=== PATIENT | female | born 1990 | race Caucasian/White ===

== ENCOUNTER 2018-12-07 04:32 | Emergency (ER) | payer MEDICAID, OTHER ==
[~2018-12-07] VITALS: Ht 170.2 cm; Wt 100.0 kg
[2018-12-07] MEDS ORDERED: MIRE1IUD IU (04:44)
[2018-12-07] MEDS ORDERED: METOCLOPRAMIDE INJ 10MG/2ML VIAL (J2765) IV ONE (04:45)
[2018-12-07] MEDS ORDERED: NS 1,000 ML IV ONE (04:45)
[2018-12-07 05:03] LABS: BASO # 0.1 10^3/uL (0.0-0.2); BASO % 0.4 % (0.0-1.0); EOS # 0.1 10^3/uL (0.0-0.50); EOS % 0.5 % (0.0-3.0); HEMATOCRIT 44.3 % (36.0-47.0); HEMOGLOBIN 14.8 g/dl (12.0-15.5); LYMPH # 2.3 10^3/uL (1.5-4.5); LYMPH % 17.2 % (24.0-44.0); MEAN CORPUSCULAR HEMOGLOBIN 29.1 pg (27.0-33.0); MEAN CORPUSCULAR HGB CONC 33.4 g/dl (32.0-36.5); MEAN CORPUSCULAR VOLUME 87.2 fl (80.0-96.0); MONO # 0.6 10^3/uL (0.0-0.8); MONO % 4.5 % (0.0-5.0); NEUTROPHILS # 10.5 10^3/uL (1.8-7.7); PLATELET COUNT, AUTOMATED 282 10^3/uL (150-450); RED BLOOD COUNT 5.08 10^6/uL (4.00-5.40); WHITE BLOOD COUNT 13.6 10^3/uL (4.0-10.0)
[2018-12-07 05:07] LABS: APPEARANCE, URINE HAZY (CLEAR); BACTERIA, URINE AUTO NEGATIVE (NEGATIVE); BILIRUBIN, URINE AUTO NEGATIVE (NEGATIVE); BLOOD, URINE BLOOD 1+ (NEGATIVE); COLOR, URINE YELLOW (YELLOW); GLUCOSE, URINE (UA) AUTO NEGATIVE (NEGATIVE); KETONE, URINE AUTO NEGATIVE (NEGATIVE); LEUKOCYTE ESTERASE, URINE AUTO TRACE (NEGATIVE); MUCUS, URINE SMALL (NEGATIVE); NITRITE, URINE AUTO NEGATIVE (NEGATIVE); PROTEIN, URINE AUTO NEGATIVE (NEGATIVE); RBC, URINE AUTO 15 /HPF (0-3); SPECIFIC GRAVITY URINE AUTO 1.027 (1.002-1.035); SQUAMOUS EPITHELIAL CELL UR AU 15 /HPF (0-6); UROBILINOGEN, URINE AUTO 0.2 mg/dL (0.0-2.0); WBC, URINE AUTO 6 /HPF (0-3)
[2018-12-07] MEDS ORDERED: SUCRALFATE 1 GM TAB PO ONE (05:15)
[2018-12-07] MEDS ORDERED: PANTOPRAZOLE 40MG INJ (PROTONIX) (C9113) IV ONE (05:15)
[2018-12-07] MEDS ORDERED: GI COCKTAIL 50ML BTL(HYOSCYAMINE/MAALOX/LIDOCAINE VISCOUS)(1:3:1) PO ONE (05:15)
[2018-12-07 05:16] LABS: HCG, SERUM QUALITATIVE NEGATIVE (NEGATIVE)
[2018-12-07 05:24] LABS: ALBUMIN 4.5 GM/DL (3.2-5.2); ALT/SGPT 23 U/L (12-78); BILIRUBIN,DIRECT 0.2 MG/DL (0.0-0.2); BILIRUBIN,TOTAL 0.6 MG/DL (0.2-1.0); BLOOD UREA NITROGEN 16 MG/DL (7-18); CALCIUM LEVEL 8.7 MG/DL (8.5-10.1); CARBON DIOXIDE LEVEL 26 MEQ/L (21-32); CHLORIDE LEVEL 105 MEQ/L (98-107); CREATININE FOR GFR 0.97 MG/DL (0.55-1.30); GLOMERULAR FILTRATION RATE > 60.0 (>60); GLUCOSE, FASTING 106 MG/DL (70-100); LIPASE 112 U/L (73-393); POTASSIUM SERUM 3.9 MEQ/L (3.5-5.1); SODIUM LEVEL 140 MEQ/L (136-145); TOTAL PROTEIN 7.6 GM/DL (6.4-8.2)
[2018-12-07] MEDS ORDERED: PROTPAK PO (06:27)
[2018-12-07] MEDS ORDERED: SUCR1TA PO (06:27)
--- NOTE | 2018-12-07 06:31 | REPVR ---
EXAM: CT Abdomen and Pelvis Without Contrast EXAM DATE/TIME: 12/07/2018 5:27 AM CLINICAL HISTORY: 28 years old, female; Pain; Abdominal pain; Flank; Right; Additional info: R colic TECHNIQUE: Axial computed tomography images of the abdomen and pelvis without contrast. All CT scans at this facility use at least one of these dose optimization techniques: automated exposure control; mA and/or kV adjustment per patient size (includes targeted exams where dose is matched to clinical indication); or iterative reconstruction. Coronal and sagittal reformatted images were created and reviewed. COMPARISON: No relevant prior studies available. FINDINGS: Lower thorax: No acute findings. ABDOMEN: Liver: The liver is mildly enlarged. Gallbladder and bile ducts: Mildly distended gallbladder lumen, a nonspecific finding. Tiny calcified gallstone. Minimal pericholecystic haziness. Pancreas: Unremarkable. Spleen: Unremarkable. Adrenals: Unremarkable. Kidneys and ureters: Unremarkable. Stomach and bowel: Mild retained stool throughout the colon. Mild colonic diverticulosis. Underdistended splenic flexure and descending colon which limits evaluation for wall thickening. Appendix: Unremarkable appendix. PELVIS: Bladder: Underdistended urinary bladder. Reproductive: There is an IUD which appears to be in place. ABDOMEN and PELVIS: Intraperitoneal space: No free air. No significant fluid collection. Bones/joints: Mild disc disease at L5 S1. Incomplete fusion of the posterior elements at S1. Soft tissues: Unremarkable. Vasculature: No abdominal aortic aneurysm. Lymph nodes: Small nonspecific bilateral inguinal lymph nodes, some are mildly enlarged. Small nonspecific scattered mesenteric and ileocolic lymph nodes. IMPRESSION: 1. Mild distended gallbladder lumen and cholelithiasis. Minimal pericholecystic haziness. Recommend clinical correlation and assessment of lab values to exclude early inflammatory changes. Ultrasound may be performed for further assessment. 2. Mild colonic diverticulosis. Underdistended splenic flexure and descending colon which limits evaluation for wall thickening. Electronically signed by: Madie Dimas On 12/07/2018 06:31:22 AM
[2018-12-07 06:48] VITALS: BP 148/84
== END 2018-12-07 06:51 | disposition home or self-care (01) ==
LOC: M ED 04:32
DX: K29.70 Gastritis, unspecified, without bleeding (principal); K80.20 Calculus of gallbladder without cholecystitis without obstruction; F17.200 Nicotine dependence, unspecified, uncomplicated; Z97.5 Presence of (intrauterine) contraceptive device
CPT/HCPCS: 36415; 74176; 80048; 80076; 81001; 83690; 84703; 85025; 87088; 87186; 96374; 96375; 99284; C9113; J2765

== ENCOUNTER → 2018-12-23 | Outpatient (REF) | payer OTHER ==
[~2018-12-23] MED LIST: MIRE1IUD IU; PROTPAK PO; SUCR1TA PO
== END ==
LOC: M SFHCPLAZ 17:14
PROVIDERS: ATTEND Nurse Practitioner Family
DX: R31.9 Hematuria, unspecified (principal)

== ENCOUNTER 2023-01-21 19:00 | Emergency (ER) | payer OTHER ==
[~2023-01-21] VITALS: Ht 170.2 cm; Wt 99.2 kg
[2023-01-21] MEDS ORDERED: ONDANSETRON 4MG 2ML VIAL IV ONE (20:30)
[2023-01-21] MEDS ORDERED: NS 1,000 ML IV SCH (20:30)
[2023-01-21] MEDS ORDERED: PANTOPRAZOLE 40MG VIAL IV ONE (20:30)
[2023-01-21] MEDS ORDERED: GI COCKTAIL 50ML BTL(HYOSCYAMINE/MAALOX/LIDOCAINE VISCOUS)(1:3:1) PO ONE (20:30)
[2023-01-21 20:41] LABS: BASO # 0.1 10^3/uL (0.0-0.2); BASO % 0.6 % (0.0-1.0); EOS # 0.1 10^3/uL (0.0-0.5); EOS % 1.2 % (0.0-3.0); HEMATOCRIT 45.5 % (36.0-47.0); HEMOGLOBIN 15.5 g/dl (12.0-15.5); LYMPH # 2.4 10^3/uL (1.5-5.0); MEAN CORPUSCULAR HEMOGLOBIN 29.7 pg (27.0-33.0); MEAN CORPUSCULAR HGB CONC 34.1 g/dl (32.0-36.5); MEAN CORPUSCULAR VOLUME 87.2 fl (80.0-96.0); MONO # 0.5 10^3/uL (0.0-0.8); MONO % 4.8 % (2.0-8.0); NEUTROPHILS # 7.6 10^3/uL (1.5-8.5); PLATELET COUNT, AUTOMATED 303 10^3/uL (150-450); RED BLOOD COUNT 5.22 10^6/uL (4.00-5.40); WHITE BLOOD COUNT 10.7 10^3/uL (4.0-10.0)
[2023-01-21 20:57] LABS: INR 0.89; PROTHROMBIN TIME 12.2 SECONDS (12.5-14.5)
[2023-01-21 21:12] LABS: LIPASE 33 U/L (12-53)
[2023-01-21 21:14] LABS: ALBUMIN 4.1 G/DL (3.2-5.2); ALKALINE PHOSPHATASE 48 U/L (46-116); ALT/SGPT 25 U/L (7.0-40); AMYLASE 83 U/L (30-118); AST/SGOT 21 U/L (<34); BILIRUBIN,DIRECT 0.1 MG/DL (<0.4); BILIRUBIN,TOTAL 0.4 MG/DL (0.3-1.2); BLOOD UREA NITROGEN 11 MG/DL (9-23); CALCIUM LEVEL 10.1 MG/DL (8.5-10.1); CARBON DIOXIDE LEVEL 27 MMOL/L (20-31); CHLORIDE LEVEL 103 MMOL/L (98-107); CREATININE FOR GFR 0.72 MG/DL (0.55-1.30); GLOMERULAR FILTRATION RATE > 60.0 (>60); GLUCOSE, FASTING 93 MG/DL (60-100); POTASSIUM SERUM 4.5 MMOL/L (3.5-5.1); SODIUM LEVEL 138 MMOL/L (136-145); TOTAL PROTEIN 7.2 G/DL (5.7-8.2)
[2023-01-21 21:15] LABS: HCG, SERUM QUALITATIVE NEGATIVE (NEGATIVE)
[2023-01-21] MEDS ORDERED: metroNIDAZOLE (FLAGYL) 500MG TABLET PO ONE (22:45)
[2023-01-21] MEDS ORDERED: CIPROFLOXACIN 400 MG in IV 1 EA IV ONE (22:45)
[2023-01-21] MEDS ORDERED: METR-265 PO (22:55)
[2023-01-21] MEDS ORDERED: CIPR-249 PO (22:55)
[2023-01-21] MEDS ORDERED: PANT40TA29 PO (22:56)
[2023-01-21 23:45] VITALS: BP 131/86
== END 2023-01-22 00:26 | disposition home or self-care (01) ==
LOC: M ED 19:00
DX: K80.70 Calculus of gallbladder and bile duct without cholecystitis without obstruction (principal); K21.9 Gastro-esophageal reflux disease without esophagitis; F17.200 Nicotine dependence, unspecified, uncomplicated; Z79.899 Other long term (current) drug therapy
CPT/HCPCS: 71275; 74177; 80048; 80076; 82150; 83605; 83690; 84703; 85025; 85610; 93005; 93041; 99284; C9113; J0744; J2405

== ENCOUNTER 2023-04-28 10:44 | Day surgery (SDC) | payer OTHER ==
[~2023-04-28] VITALS: Ht 170.2 cm; Wt 96.7 kg
[~2023-04-28 10:44] MED LIST changes: +CIPR-249 PO; +METR-265 PO; +PANT40TA29 PO; +ceFAZolin SOD 2 GM in IV 1 EA IV ONE
[2023-04-28] MEDS ORDERED: MIDAZOLAM INJ 2MG/2ML VIAL As Ordered ONE (10:50)
[2023-04-28] MEDS ORDERED: KETOROLAC 60MG 2ML VIAL As Ordered ONE (10:50)
[2023-04-28] MEDS ORDERED: LIDOCAINE 2% 100MG/5ML SDV (FOR ANES.) As Ordered ONE (10:50)
[2023-04-28] MEDS ORDERED: ONDANSETRON 4MG 2ML VIAL As Ordered ONE (10:50)
[2023-04-28] MEDS ORDERED: fentaNYL 250 MCG/5 ML INJECTION As Ordered ONE (10:50)
[2023-04-28] MEDS ORDERED: ROCURONIUM BROMIDE 50MG/5ML VIAL As Ordered ONE ×2 (10:51→12:34)
[2023-04-28] MEDS ORDERED: propofoL 200 MG/20 ML VIAL As Ordered ONE ×2 (10:51→12:59)
[2023-04-28] MEDS ORDERED: ACETAMINOPHEN 1000MG 100ML IV BAG As Ordered ONE (10:51)
[2023-04-28] MEDS ORDERED: LR 1,000 ML IV SCH ×2 (11:05→13:15)
[2023-04-28] MEDS ORDERED: ePHEDrine SULFATE 25 MG/5 ML(5MG/ML) SYRINGE As Ordered ONE ×2 (12:21→12:31)
[2023-04-28] MEDS ORDERED: SUGAMMADEX SODIUM 500 MG/5 ML VIAL (BRIDION) As Ordered ONE (12:34)
[2023-04-28] MEDS ORDERED: METOCLOPRAMIDE INJ 10MG/2ML VIAL IV PRN (13:15)
[2023-04-28] MEDS ORDERED: fentaNYL 100 MCG/2 ML INJECTION IV PRN (13:15)
[2023-04-28] MEDS ORDERED: ONDANSETRON 4MG 2ML VIAL IV PRN (13:15)
[2023-04-28] MEDS ORDERED: oxyCODONE 5MG TAB PO PRN (13:15)
[2023-04-28] MEDS ORDERED: HYDROMORPHONE HCL 0.5 MG/ 0.5 ML SYRINGE IV PRN (13:15)
[2023-04-28 14:39] VITALS: BP 130/78; TEMP 97.5; O2SAT 98
== END 2023-04-28 14:39 | disposition home or self-care (01) ==
LOC: M SDC 10:44
PROVIDERS: ATTEND Surgery
DX: K80.10 Calculus of gallbladder with chronic cholecystitis without obstruction (principal); K21.9 Gastro-esophageal reflux disease without esophagitis; F17.210 Nicotine dependence, cigarettes, uncomplicated; Z79.899 Other long term (current) drug therapy
CPT/HCPCS: 47562; 88304; J0131; J0690; J1100; J1885; J2250; J2405; J3010; S0020

== ENCOUNTER → 2024-12-02 | Outpatient (REF) | payer OTHER ==
[~2024-12-02] MED LIST changes: -ceFAZolin SOD 2 GM in IV 1 EA IV ONE
== END ==
LOC: M LAB REF 20:49
PROVIDERS: ATTEND Physician Assistant
DX: B34.9 Viral infection, unspecified (principal)